=== PATIENT | male | born 1930 | race African-American/Black ===

== ENCOUNTER 2017-11-19 09:31 | Emergency (ER) | payer MEDICAID, OTHER ==
[~2017-11-19] VITALS: Ht 185.4 cm; Wt 90.0 kg
[2017-11-19] MEDS ORDERED: ACETAMINOPHEN 325MG TABLET PO STA (11:46)
[2017-11-19 13:46] VITALS: BP 126/75
== END 2017-11-19 17:18 | disposition home or self-care (01) ==
LOC: ER 09:31
DX: M79.605 Pain in left leg (principal); B02.9 Zoster without complications; V47.0XXA Car driver injured in collision with fixed or stationary object in nontraffic accident, initial encounter; Y93.89 Activity, other specified; Y92.410 Unspecified street and highway as the place of occurrence of the external cause
CPT/HCPCS: 73502; 73552; 93971; 99284